=== PATIENT | male | born 1960 | race Caucasian/White ===

== ENCOUNTER → 2019-12-12 | Day surgery (SDC) | payer OTHER ==
[2019-12-06 14:40] LABS: BASOPHILS # (AUTO) 0.1 (0.0-0.1); BASOPHILS % 0.7 % (0.0-1.0); EOSINOPHILS # (AUTO) 0.3 (0.0-0.4); HEMATOCRIT 53.6 % (38.2-49.6); HEMOGLOBIN 17.5 g/dL (14.0-18.0); LYMPHOCYTES # (AUTO) 1.9 (1.0-3.2); LYMPHOCYTES % 19.9 % (18.0-39.1); MEAN CORPUSCULAR HGB CONC 32.6 g/dL (31-35); MEAN CORPUSCULAR VOLUME 91.8 fL (81-99); MONOCYTES % 10.4 % (4.4-11.3); NEUTROPHILS # (AUTO) 6.2 (2.1-6.9); NEUTROPHILS % 65.3 % (38.7-80.0); PLATELET COUNT 285 x10e3/uL (140-360); RED BLOOD COUNT 5.84 x10e6/uL (4.3-5.7); RED CELL DISTRIBUTION WIDTH 12.3 % (11.7-14.4)
[2019-12-06 14:57] LABS: CALCIUM 9.6 mg/dL (8.4-10.2); CREATININE, SERUM 1.43 mg/dL (0.72-1.25)
[~2019-12-12] MED LIST: BACITRACIN 50,000 UNIT VIAL ONE; BUPIVACAINE HCL 0.5% INJ 30 ML VIAL INJ ONE; CEFAZOLIN SOD 1 GM/NS 50ML 100 ML IV ONE; DEXAMETHASONE SOD PHOS INJ 4 MG/ML VIAL ONE; HYDROCODONE/APAP 5MG-325MG TAB ONE; KEFLEX500 MG PO; KETOROLAC TROMETHAMINE 30 MG/ML VIAL ONE; LIDOCAINE HCL 2% LOCAL INJ 5 ML SDV VIAL INJ ONE; LOSARTAN-HCTZ1 EAC2 PO; ONDANSETRON HCL INJ 2MG/ML 2ML 2 MG/ML VIAL ONE; PROPOFOL IV EMULSION 10 MG/ML 20 ML VIAL ONE; SEVOFLURANE INHAL SOLN 250 ML PEN BTL ONE
[2019-12-12 08:30] VITALS: BP 130/90
--- NOTE | 2019-12-18 05:37 | Operative Report ---
DATE OF PROCEDURE: 12/12/2019 SURGEON: RAYNA COLE MD LOCATION: Place of surgery is [facility]. HISTORY: Mr. 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 The patient had done a trial of multiple efforts of conservative treatment consisting of multiple injections, anti-inflammatories, home therapy, and occupational therapy program. All of which have failed to resolve his pain symptoms fully and/or completely. Clinically, he was found to have a partial tear of the extensor tendon mass of his left elbow along with chronic elbow lateral epicondylitis. The patient had elected to proceed on with surgical intervention to include a Nirschl procedure with extensor tendon repair along with possible exostosis removal of the bony spur of the lateral aspect of the elbow. The patient is seen and identified in the preop holding area. The left elbow and forearm were marked by myself and the patient agreed along with nursing staff. The patient was then brought back to the operative suite, placed supine on the operative table. Time-out was taken for Mr. Kalen Faye for a left elbow Nirschl procedure with extensor tendon mass repair along with possible epicondylectomy and excision of bony exostosis. All were in agreement including the nursing staff, anesthesia, and myself. The patient received a successful general intubation anesthetic and a nonsterile tourniquet was placed high in the left upper extremity and the left upper extremity was then sterilely prepped and draped in usual standard fashion. The limb was exsanguinated. The tourniquet was inflated to approximately 225- 250 mmHg. Prior to surgery in the preoperative holding, I had marked off the area where the patient had the majority of his pain. A curvilinear incision was made over the left elbow lateral epicondyle region. This was done using an initial 10 Bard-Fran blade. Subcutaneous bleeding was controlled using the Bovie tip. Blunt dissection was carried down to the extensor mass insertion. Upon direct palpation, it was needed to carol the bony exostosis and short ridge. A sharp dissection was carried down. The fascia was incised in line with the skin incision. Upon immediate dissection down, there was extensor tendon tear, the extensor tendon mass was identified. The patient had a marked amount of grayish nonviable , Nirschl like tissue. I went ahead and removed this tissue sharply as well as using a micro rongeur. The bony exostosis of the condyle was noted and this was removed using a quarter-inch osteotome. The surrounding edges were smoothed out using the micro rongeur. The exostosis was successfully removed, excised, and smoothed down using a hand rasp. Copious irrigation was carried out. Attention was then redirected back to the extensor mass tear. I went ahead and placed in two Arthrex tack sutures along the original surgery of the extensor tendon mass. The two pairs of suture tape was then passed through the tendon and the tendon was then reattached back down to the bony insertion. I went ahead and augmented the repair, closing the fascia using a 0 Vicryl suture. Next, copious irrigation was carried out. There appears on to be stable range of motion of the elbow. Final counts were found to be correct after final irrigation. The deep layer closure was done beginning with a 2-0 Vicryl and the skin reapproximating meryl. The patient was then placed in a long arm splint to protect the tendon repair. Tourniquet had been released prior and the dressings were placed on and again a final long-arm splint was applied. There was no signs of acute or postop bleeding noted. The patient had good capillary refills. The patient has been successfully extubated and transferred to PACU in stable condition. PREOPERATIVE DIAGNOSES: 1. Chronic left elbow lateral epicondylitis. 2. Extensor tendon mass tear with extensor tendon mass of the left elbow. 3. Bony exostosis of the left elbow. PROCEDURE: 1. Nirschl procedure of the left elbow with removal of nonviable Nirschl tissue. 2. Extensor tendon mass repair of the left forearm and elbow with the use of two Arthrex tack suture anchors. 3. Excision of bony exostosis of the left elbow. 4. Placement of a long-arm splint of the left elbow. ANESTHESIA: General. ESTIMATED BLOOD LOSS: Less than 10 to 50 mL. SPECIMEN: Nirschl tissue and bony exostosis. COMPLICATIONS: None. CONDITION: Stable to PACU. The patient was seen in PACU. Dressings were clean and dry. Capillary refills were brisk. Pain is well controlled. The intraoperative findings noted in. DISCHARGE: Instructions discussed with nursing staff. The patient discharged home with Roebling as well as Keflex. I asked him to follow up in [facility] in 12-14 days for wound check and staple removals. I did attempt to call his family members seen and there was no one present after surgery and attempted to call Mr. Susy Faye at [phone], but there was no reply. The last discharge instructions were discussed with nursing staff as well as well as the patient prior to surgery. MD ROSINA BECK/ILENE /[id number] LAKHWINDER
== END | disposition home or self-care (01) ==
LOC: OR 05:18
PROVIDERS: ATTEND Orthopaedic Surgery
DX: M77.12 Lateral epicondylitis, left elbow (principal); S56.512A Strain of other extensor muscle, fascia and tendon at forearm level, left arm, initial encounter; M67.824 Other specified disorders of tendon, left elbow; M77.11 Lateral epicondylitis, right elbow; M25.622 Stiffness of left elbow, not elsewhere classified; M89.9 Disorder of bone, unspecified; I45.10 Unspecified right bundle-branch block; I10 Essential (primary) hypertension; E66.09 Other obesity due to excess calories; X58.XXXA Exposure to other specified factors, initial encounter; Z01.810 Encounter for preprocedural cardiovascular examination; Z01.812 Encounter for preprocedural laboratory examination; Z11.59 Encounter for screening for other viral diseases; Z68.35 Body mass index [BMI] 35.0-35.9, adult
CPT/HCPCS: 24120; 24359; 36415; 80048; 85025; 93005; C1713; J0690; J1100; J1885; J2001; J2405; J2704; U0002